=== PATIENT | female | born 1980 | race Caucasian/White ===

== ENCOUNTER 2019-11-09 20:23 | Emergency (ER) | payer MEDICAID, SELFPAY ==
[~2019-11-09] VITALS: Ht 154.9 cm; Wt 45.4 kg
[2019-11-09 21:02] VITALS: BP 97/65
--- NOTE | 2019-11-09 21:05 | NUR ---
PT TRIAGED IN TENT AND WAITING TO BE SEEN
--- NOTE | 2019-11-09 21:06 | NUR ---
39 Y/O FEMALE C/O PT HAS LUCIANO TIGHTNESS UPON INSPIRATION/EXPIRATION THAT RADITATES TO MIDDLE OF BACK; TEMPLE;DIZZY; PT'S MOM TESTED + FOR COVID YESTERDAY; O2 SAT 99% RA; ORAL TEMP 98.3; RR 18 AND UNLABORED; PT TALKING IN FULL SENTENCES PMH: SMOKES MARIJUANA ALELRGY: VICODIN
--- NOTE | 2019-11-09 21:15 | NUR ---
EXAMINING PT IN TENT WEARING PPE
--- NOTE | 2019-11-09 21:58 | NUR ---
ORAL COVID SWAB DONE AND WALKED TO LAB
--- NOTE | 2019-11-09 22:33 | NUR ---
SPEAKING WITH PT IN TENT WEARING PPE
[2019-11-09 22:40] VITALS: BP 97/65
--- NOTE | 2019-11-09 22:40 | NUR ---
Patient discharged with v/s stable. Written and verbal after care instructions given and explained. Patient verbalized understanding. Ambulatory with steady gait. All questions addressed prior to discharge. Advised to follow up with PMD.
== END 2019-11-09 22:40 | disposition home or self-care (01) ==
LOC: EEVIPCON 20:23 → MED 20:23
DX: U07.1 COVID-19 (principal); F12.90 Cannabis use, unspecified, uncomplicated; Z88.5 Allergy status to narcotic agent; Z88.6 Allergy status to analgesic agent
CPT/HCPCS: 99283; U0003